=== PATIENT | male | born 1990 | race African-American/Black ===

== ENCOUNTER 2024-11-01 23:53 | Emergency (ER) | payer OTHER ==
[~2024-11-01] VITALS: Ht 177.8 cm; Wt 93.5 kg
[2024-11-02] MEDS ORDERED: ACET-861 PO (00:06)
[2024-11-02 08:15] VITALS: BP 136/77; TEMP 96.8; O2SAT 98
== END 2024-11-02 08:25 | disposition home or self-care (01) ==
LOC: M ED 23:53
DX: U07.1 COVID-19 (principal); Z79.1 Long term (current) use of non-steroidal anti-inflammatories (NSAID)